=== PATIENT | female | born 1965 | race Caucasian/White ===

== ENCOUNTER 2020-12-14 10:47 | Emergency (ER) | payer OTHER, SELFPAY ==
[~2020-12-14] VITALS: Ht 165.1 cm; Wt 108.9 kg
[2020-12-14 11:21] VITALS: BP 141/85; Ht 165.1 cm; Wt 108.9 kg
== END 2020-12-14 14:12 | disposition home or self-care (01) ==
LOC: ED 10:47
DX: U07.1 COVID-19 (principal); J12.89 Other viral pneumonia; E11.9 Type 2 diabetes mellitus without complications; Z88.0 Allergy status to penicillin; Z88.2 Allergy status to sulfonamides; Z88.1 Allergy status to other antibiotic agents; Z88.5 Allergy status to narcotic agent
CPT/HCPCS: U0003